=== PATIENT | female | born 1950 | race Caucasian/White ===

== ENCOUNTER 2016-08-20 09:52 | Inpatient (IN) | payer OTHER ==
[2016-08-06 09:21] VITALS: Ht 160 cm; Wt 85.5 kg
[2016-08-06 10:09] VITALS: BP_SYST 128; RESP 20; TEMP 99.4
[2016-08-20] VITALS (18 sets, daily range): BP systolic 65–149; RESP 12–21; TEMP 97.3–98.7
[~2016-08-20] VITALS: Ht 160 cm; Wt 85.5 kg
[2016-08-20] MEDS ORDERED: CEFAZOLIN 2,000 MG in SODIUM CHLORIDE 0.9% 100 ML IV ONE (10:05)
[2016-08-20] MEDS ORDERED: ACETAMINOPHEN 1,000 MG/100 ML IV ONE (10:29)
[2016-08-20] MEDS ORDERED: ONDANSETRON 4 MG VIAL IV PUSH ONE (10:29)
[2016-08-20] MEDS ORDERED: ROCURONIUM 50 MG VIAL IV ONE (10:29)
[2016-08-20] MEDS ORDERED: DILAUDID 1 MG/ML AMP IV ONE (10:29)
[2016-08-20] MEDS ORDERED: LIDOCAINE 2% SYR 5 ML IV ONE (10:29)
[2016-08-20] MEDS ORDERED: DEXAMETHASONE 4 MG/ML VIAL IV ONE (10:29)
[2016-08-20] MEDS ORDERED: FENTANYL 100 MCG/2 ML AMP IV ONE (10:29)
[2016-08-20] MEDS ORDERED: NEOSTIGMINE 10 MG/10 ML VIAL IV ONE (10:29)
[2016-08-20] MEDS ORDERED: PROPOFOL 20 ML PER ML IV ONE (10:29)
[2016-08-20] MEDS ORDERED: GLYCOPYRROLATE 0.2 MG/ML VIAL IV ONE ×2 (10:29→10:45)
[2016-08-20] MEDS ORDERED: LACT RINGERS 1,000 ML IV SCH (10:45)
[2016-08-20] MEDS ORDERED: MIDAZOLAM 2 MG/2 ML INJ IV ONE (10:45)
[2016-08-20] MEDS ORDERED: LIDOCAINE 1% BUFFERED 1 ML SYR INTRADERM PRN (10:45)
[2016-08-20] MEDS ORDERED: GELATIN SPONGE 12 CM2 TOPICAL ONE (11:03)
[2016-08-20] MEDS ORDERED: BUPIVACA/EPI 0.5% PF 10 ML NERVEBLOCK ONE (11:03)
[2016-08-20] MEDS ORDERED: THROMBIN 5000 UNIT KIT TOPICAL ONE (11:03)
[2016-08-20] MEDS ORDERED: BACITRACIN 50,000 UNITS INJ IRRIG ONE (11:03)
[2016-08-20] MEDS ORDERED: MORPHINE 4 MG/ML SYR IV PRN ×2 (12:50→15:50)
[2016-08-20] MEDS ORDERED: ONDANSETRON 4 MG VIAL IV PRN ×2 (12:50→15:50)
[2016-08-20] MEDS ORDERED: MEPERIDINE 25 MG/ML IV PRN (12:50)
[2016-08-20] MEDS ORDERED: DILAUDID 1 MG/ML AMP IV PRN (12:50)
[2016-08-20] MEDS ORDERED: OXYCODONE 5 MG TAB PO PRN (12:50)
[2016-08-20] MEDS ORDERED: MORPHINE 2 MG/ML SYR IV PRN (12:50)
[2016-08-20] MEDS ORDERED: CHLORASEPTIC 180 ML BTL PO PRN (15:50)
[2016-08-20] MEDS ORDERED: OXYCODONE/APAP 5/325 TAB PO PRN (15:50)
[2016-08-20] MEDS ORDERED: SODIUM CHLORIDE 0.9% 1,000 ML IV SCH (15:50)
[2016-08-20] MEDS ORDERED: ACETAMINOPHEN 325 MG TAB PO PRN (15:50)
[2016-08-20] MEDS: DICYCLOMINE 10 MG CAP PO SCH ×2 (17:00→22:14)
[2016-08-20] MEDS: MORPHINE 2 MG/ML SYR IV PRN ×2 (17:26→22:12)
[2016-08-20] MEDS ORDERED: PROMETHAZINE 12.5 MG SUPP RECTAL PRN (20:45)
[2016-08-20] MEDS ORDERED: MISSING DOSE XX ONE (20:50)
[2016-08-20] MEDS: METOPROLOL TART 25 MG TAB PO SCH (22:12)
[2016-08-20] MEDS: amLODIPine 10 MG TAB PO SCH (22:13)
[2016-08-20] MEDS: Atorvastatin 20 MG TAB PO SCH (22:13)
[2016-08-20] MEDS: DOCUSATE SOD 100 MG CAP PO SCH (22:14)
[2016-08-20] MEDS: CEFAZOLIN 2,000 MG in SODIUM CHLORIDE 0.9% 100 ML IV SCH (22:14)
[2016-08-21] VITALS (8 sets, daily range): BP systolic 124–137; RESP 14–16; TEMP 97.4–97.8
[2016-08-21] MEDS: OXYCODONE/APAP 5/325 TAB PO PRN ×4 (03:22→17:52)
[2016-08-21] MEDS ORDERED: MISSING DOSE XX ONE ×2 (05:15→11:00)
[2016-08-21] MEDS: CEFAZOLIN 2,000 MG in SODIUM CHLORIDE 0.9% 100 ML IV SCH ×2 (05:42→13:34)
[2016-08-21] MEDS: FENOFIBRATE 48 MG TAB PO SCH (08:18)
[2016-08-21] MEDS: CALCIUM CARB/VIT D3 600 MG TAB PO SCH (08:18)
[2016-08-21] MEDS: METOPROLOL TART 25 MG TAB PO SCH ×2 (08:18→20:24)
[2016-08-21] MEDS: OMEGA 3 FATTY ACIDS 1 GM CAP PO SCH (08:18)
[2016-08-21] MEDS: CHLORTHALIDONE 25 MG TAB PO SCH (08:18)
[2016-08-21] MEDS: DOCUSATE SOD 100 MG CAP PO SCH ×2 (09:00→20:23)
[2016-08-21] MEDS: DICYCLOMINE 10 MG CAP PO SCH ×4 (12:30→20:24)
[2016-08-21] MEDS: Atorvastatin 20 MG TAB PO SCH (20:23)
[2016-08-21] MEDS: amLODIPine 10 MG TAB PO SCH (20:23)
[2016-08-22] MEDS: OXYCODONE/APAP 5/325 TAB PO PRN ×2 (00:11→07:55)
[2016-08-22 03:20] VITALS: BP_SYST 119; TEMP 98.1
[2016-08-22 03:21] VITALS: RESP 16
[2016-08-22 07:46] VITALS: BP_SYST 121; RESP 16; TEMP 97.4
[2016-08-22] MEDS: OMEGA 3 FATTY ACIDS 1 GM CAP PO SCH (07:54)
[2016-08-22] MEDS: DICYCLOMINE 10 MG CAP PO SCH (07:54)
[2016-08-22] MEDS: METOPROLOL TART 25 MG TAB PO SCH (07:54)
[2016-08-22] MEDS: DOCUSATE SOD 100 MG CAP PO SCH (07:54)
[2016-08-22] MEDS: CHLORTHALIDONE 25 MG TAB PO SCH (07:55)
[2016-08-22] MEDS: CALCIUM CARB/VIT D3 600 MG TAB PO SCH (07:55)
[2016-08-22] MEDS: FENOFIBRATE 48 MG TAB PO SCH (07:55)
[2016-08-22 09:40] VITALS: BP_SYST 121; RESP 16; TEMP 97.4
== END 2016-08-22 10:12 | disposition home or self-care (01) | DRG 473 ==
LOC: ENRESERVDT → ENRESERVTM → ENPENDDIS 09:52 → SDS 09:52 → 5THW 17:00
PROVIDERS: ADMIT Neurological Surgery; ATTEND Neurological Surgery
PROC: 0RG20K0 Fusion of 2 or more Cervical Vertebral Joints with Nonautologous Tissue Substitute, Anterior Approach, Anterior Column, Open Approach (ICD-10-PCS; principal; 2016-08-20 13:03)
DX: M48.02 Spinal stenosis, cervical region (principal); I10 Essential (primary) hypertension; M54.10 Radiculopathy, site unspecified; Z87.891 Personal history of nicotine dependence
CPT/HCPCS: 76000